=== PATIENT | female | born 1955 | race Caucasian/White ===

== ENCOUNTER 2018-11-23 21:59 | Inpatient (IN) | payer OTHER ==
[~2018-11-23] VITALS: Ht 167.6 cm; Wt 95.7 kg
[~2018-11-23 21:59] MED LIST: ASACOL PO; EXCEDRIN IB200 MG PO; METAMUCIL1 PDR PO; OMEPRAZOLE40 MG PO; TYLENOL PM EXTR1 TA1 PO
[2018-11-23] MEDS ORDERED: IMODIUM A-D2 M3 PO (22:18)
[2018-11-23] MEDS ORDERED: ASACOL HD800 M1 PO (22:19)
[2018-11-23] MEDS ORDERED: CIPRO500 M1 PO (22:20)
[2018-11-23 22:57] LABS: HEMATOCRIT 46.9 % (37.0-47.0); HEMOGLOBIN 15.4 g/dL (12.5-16.0); MEAN CELL VOLUME 97 fl (78-100); MEAN CORPUSCULAR HEMOGLOBIN 32 pg (27-31); MEAN CORPUSCULAR HGB CONC 33 g/dL (33-37); PLATELET COUNT 146 K/mm3 (130-400); RED BLOOD COUNT 4.82 M/mm3 (4.10-5.30); WHITE BLOOD COUNT 13.2 K/mm3 (4.8-10.8)
[2018-11-23 23:09] LABS: ALBUMIN 4.3 g/dL (3.5-5.0); CALCIUM 8.8 mg/dL (8.4-10.2); POTASSIUM 3.7 mmol/L (3.6-5.0); TOTAL BILIRUBIN 1.3 mg/dL (0.2-1.3); TOTAL PROTEIN 7.4 g/dL (6.3-8.2)
[2018-11-23 23:40] LABS: URINE APPEARANCE CLOUDY
[2018-11-23 23:41] LABS: URINE BILIRUBIN NEGATIVE (NEGATIVE); URINE BLOOD 50 ery/uL (NEGATIVE); URINE COLOR AMBER; URINE GLUCOSE NEGATIVE (NEGATIVE); URINE KETONE 1+ (NEGATIVE); URINE LEUKOCYTE ESTERASE 1+ (NEGATIVE); URINE NITRATE NEGATIVE (NEGATIVE); URINE PROTEIN(semi-quant) 1+ mg/dL (NEGATIVE); URINE UROBILINOGEN 1 mg/dL (NORMAL); URINE WBC 16-30 /hpf (0-3)
[2018-11-23 23:42] LABS: URINE MUCUS PRESENT (NOT PRESENT)
[2018-11-23 23:44] LABS: BAND 2 % (0-10); LYMPHOCYTE 12 % (20-51); MONOCYTE 11 % (3-10); NEUTROPHILS 75 % (42-75)
[2018-11-24] VITALS (7 sets, daily range): BP systolic 112–153; BP diastolic 61–89
[2018-11-24 06:12] LABS: HEMATOCRIT 42.3 % (37.0-47.0); HEMOGLOBIN 13.9 g/dL (12.5-16.0); MEAN CELL VOLUME 98 fl (78-100); MEAN CORPUSCULAR HEMOGLOBIN 32 pg (27-31); MEAN CORPUSCULAR HGB CONC 33 g/dL (33-37); MEAN PLATELET VOLUME 10.9 fl (7.4-10.4); PLATELET COUNT 128 K/mm3 (130-400); RED BLOOD COUNT 4.31 M/mm3 (4.10-5.30); RED CELL DISTRIBUTION WIDTH 12.9 % (11.5-14.5); WHITE BLOOD COUNT 9.6 K/mm3 (4.8-10.8)
[2018-11-24 07:08] LABS: LYMPHOCYTE 23 % (20-51); MONOCYTE 9 % (3-10); NEUTROPHILS 67 % (42-75)
[2018-11-24 08:04] LABS: CALCIUM 8.4 mg/dL (8.4-10.2); POTASSIUM 3.5 mmol/L (3.5-5.1)
[2018-11-25 03:07] VITALS: BP 151/75
[2018-11-25 06:23] VITALS: BP 164/88
[2018-11-25 09:26] LABS: HEMATOCRIT 40.6 % (37.0-47.0); MEAN CELL VOLUME 100 fl (78-100); MEAN CORPUSCULAR HEMOGLOBIN 32 pg (27-31); MEAN CORPUSCULAR HGB CONC 32 g/dL (33-37); MEAN PLATELET VOLUME 11.2 fl (7.4-10.4); PLATELET COUNT 118 K/mm3 (130-400); RED BLOOD COUNT 4.07 M/mm3 (4.10-5.30); RED CELL DISTRIBUTION WIDTH 12.8 % (11.5-14.5); WHITE BLOOD COUNT 9.4 K/mm3 (4.8-10.8)
[2018-11-25 09:44] LABS: CALCIUM 8.5 mg/dL (8.4-10.2); POTASSIUM 3.9 mmol/L (3.5-5.1)
[2018-11-25 09:59] LABS: BAND 1 % (0-10); LYMPHOCYTE 27 % (20-51); MONOCYTE 15 % (3-10); NEUTROPHILS 55 % (42-75)
[2018-11-25 11:16] VITALS: BP 114/70
[2018-11-25] MEDS ORDERED: ZOFRAN ODT4 MG PO (13:18)
[2018-11-25] MEDS ORDERED: CIPRO500 M1 PO (13:18)
[2018-11-25 14:51] VITALS: BP 126/83
== END 2018-11-25 15:15 | disposition home or self-care (01) | DRG 690 ==
LOC: ED 21:59 → MED/SURG 11-24 00:08
PROVIDERS: Nurse Practitioner; ADMIT Physician Assistant
DX: N12 Tubulo-interstitial nephritis, not specified as acute or chronic (principal); E86.0 Dehydration; F17.210 Nicotine dependence, cigarettes, uncomplicated
CPT/HCPCS: C9113; J0744; J1650; J1885; J2405; J7030

== ENCOUNTER 2021-09-09 13:53 | Emergency (ER) | payer BC ==
[~2021-09-09 13:53] MED LIST changes: +ASACOL HD800 M1 PO; +CIPRO500 M1 PO; +IMODIUM A-D2 M3 PO; +ZOFRAN ODT4 MG PO
[2021-09-09 14:31] LABS: URINE APPEARANCE CLOUDY; URINE BILIRUBIN NEGATIVE (NEGATIVE); URINE BLOOD 250 ery/uL (NEGATIVE); URINE COLOR YELLOW; URINE GLUCOSE NEGATIVE (NEGATIVE); URINE KETONE NEGATIVE (NEGATIVE); URINE LEUKOCYTE ESTERASE 2+ (NEGATIVE); URINE NITRATE POSITIVE (NEGATIVE); URINE PROTEIN(semi-quant) 3+ (NEGATIVE); URINE UROBILINOGEN NORMAL (NORMAL); URINE WBC >50 /hpf (0-3)
[2021-09-09 15:07] LABS: HEMATOCRIT 46.9 % (37.0-47.0); HEMOGLOBIN 15.8 g/dL (12.5-16.0); MEAN CELL VOLUME 100 fl (78-100); MEAN CORPUSCULAR HEMOGLOBIN 34 pg (27-31); MEAN CORPUSCULAR HGB CONC 34 g/dL (33-37); MEAN PLATELET VOLUME 10.5 fl (7.4-10.4); PLATELET COUNT 238 K/mm3 (130-400); RED BLOOD COUNT 4.71 M/mm3 (4.10-5.30); RED CELL DISTRIBUTION WIDTH 12.3 % (11.5-14.5); WHITE BLOOD COUNT 13.8 K/mm3 (4.8-10.8)
[2021-09-09 15:09] LABS: POTASSIUM 4.3 mmol/L (3.5-5.1)
[2021-09-09 15:11] LABS: CALCIUM 9.5 mg/dL (8.3-10.5)
[2021-09-09 15:24] LABS: LYMPHOCYTE 27 % (20-51); MONOCYTE 11 % (3-10); NEUTROPHILS 61 % (42-75)
[2021-09-09] MEDS ORDERED: CIPRO250 M1 PO (16:07)
[2021-09-09 16:47] VITALS: BP 121/83
== END 2021-09-09 16:15 | disposition home or self-care (01) ==
LOC: ED 13:53
PROVIDERS: Family Medicine
DX: N39.0 Urinary tract infection, site not specified (principal); N12 Tubulo-interstitial nephritis, not specified as acute or chronic
CPT/HCPCS: J0696

== ENCOUNTER → 2023-04-04 | Outpatient (CLI) | payer BC ==
[~2023-04-04] MED LIST changes: +CIPRO250 M1 PO
== END ==
LOC: RAD 14:25
DX: J18.1 Lobar pneumonia, unspecified organism (principal); J41.0 Simple chronic bronchitis; Z72.0 Tobacco use

== ENCOUNTER → 2023-05-22 | Outpatient (CLI) | payer BC | LOC: RAD 09:00 | DX: J18.1 Lobar pneumonia, unspecified organism (principal); J47.9 Bronchiectasis, uncomplicated; K76.0 Fatty (change of) liver, not elsewhere classified; R60.0 Localized edema | CPT/HCPCS: Q9967 ==